=== PATIENT | male | born 1980 | race Caucasian/White ===

== ENCOUNTER 2022-02-11 10:19 | Outpatient (CLI) | payer BC, SELFPAY ==
[2022-02-11 19:41] LABS: Hematocrit 44.8 % (42.0-52.0); Hemoglobin 14.8 g/dL (14.0-18.0); Mean Corpuscular Hemoglobin 29.1 pg (26-34); Mean Corpuscular Volume 88.2 fl (80-100); Mean Platelet Volume 10.9 fl (7.4-10.4); Platelet Count Result 208 k/mm3 (150-375); Red Blood Count 5.08 M/mm3 (4.6-6.20); Red Cell Distribution Width 12.4 % (11.5-14.5); White Blood Count 5.2 K/mm3 (4.5-10.0)
[2022-02-11 19:47] LABS: Alanine Aminotransferase 33 U/L (6-50); Albumin Level 4.6 g/dL (3.5-5.1); Alkaline Phosphatase 52 U/L (38-126); Anion Gap 6 mmol/L (8-16); Aspartate Amino Transferase 33 U/L (17-59); Bilirubin,Total 0.5 mg/dL (0.2-1.3); Blood Urea Nitrogen 15 mg/dL (9-20); Calcium 9.1 mg/dL (8.4-10.2); Carbon Dioxide 30 mmol/L (22-30); Chloride 105 mmol/L (98-107); Cholesterol 221 mg/dL (0-200); Estimated Glomerular Filt Rate > 60; Glucose 95 mg/dL (65-110); HDL Direct 43 mg/dL; Potassium 4.5 mmol/L (3.4-5.0); Sodium 141 mmol/L (137-145); Triglycerides 123 mg/dL (<150)
[2022-02-11 20:01] LABS: LDL Cholesterol Direct 125 mg/dL
[2022-02-11 20:48] LABS: Folic Acid 14.6 ng/mL (2.76->20)
== END 2022-02-11 10:20 | disposition home or self-care (01) ==
LOC: ANHGOSHLAB 10:21
PROVIDERS: PCP Family Medicine; Visit Provider Family Medicine
DX: Z00.00 Encounter for general adult medical examination without abnormal findings (principal); E72.11 Homocystinuria; E72.12 Methylenetetrahydrofolate reductase deficiency; E78.2 Mixed hyperlipidemia
CPT/HCPCS: 36415; 80053; 80061; 82607; 82746; 85027

== ENCOUNTER 2023-10-25 14:30 | Outpatient (RCR) | payer SELFPAY ==
--- NOTE | 2023-08-26 14:27 | OTOPEVAL1 ---
Assessment and note entered by Hesham Reaves, AMRITR/Essie, CHT Evaluation Information Assessment Status Evaluation Diagnosis de Quervain's Subjective Information Patient reports his right wrist feels achy , pointing to the dorsum of the wrist in the center. No pain at rest, just when the wrist is stressed with particular activities. Also notes that his pain tends to be worse when his arm is fatigued. States he sees a chiropractor a few times a year and they were wondering if the wrist pain was coming from the elbow. Specifically he notes pain with shaking hands, when his hand is squeezed. Pain with spraying an aerosol can. Reports he notices symptoms when his muscles are already fatigued. He states he has experienced no acute trauma to the wrist, but notes he did fall onto the wrist a few years ago and wonders if this is residual effects from that. He has not had an x- ray or any imaging of the wrist/arm. He reports he can experience some tingling at nighttime, but unable to really pinpoint where. He states he will pay more attention to this and report back. Reported Pain Level Additional Pain Score Comments Patient reports pain comes and goes. It can get up to 6/10 at worst . Assessment OT Clinical Summary Patient referred to OT with dx of de Quervain's. Today we were unable to recreate his pain in the clinic. Negative Jonathon's and no pain with MMT to the wrist or thumb. The carpal bones have no laxity or pain with anterior-posterior sheer tests. TFCC tests were all negative. 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 Continued follow up indicated to assess the effectiveness of this intervention, to progression of his HEP, for use of modalities to treat pain, and manual therapy. Plan of Care Interventions Therapeutic Exercise,Manual Therapy,Paraffin OT Services Indicated Yes Treatment Frequency and 1x/week for 3 visits Duration These treatments will address the objective and functional deficits as defined above. The patient will be advanced safely and appropriately in order for the patient to progress towards his/her prior level of function. Additional exercises will be introduced and as well as a comprehensive home exercise program upon discharge, if needed, ?to ensure carryover of functional gains achieved in the clinic. This treatment plan has been reviewed and agreement upon by the patient.
--- NOTE | 2023-08-26 14:27 | OPREHPOC ---
Outpatient Therapy Plan of Care This is a Multidisciplinary Plan of Care that may contain components documented by all disciplines (PT, OT, and ST.) OT Problem 1 OT Problem #1 Knowledge Deficit OT Goal 1 Goal 1. Patient to be independent with instructed materials. Target Visit 3 OT Problem 2 OT Problem #2 Pain OT Goal 1 Goal 1. Patient to report no pain with ADLs or functional activities that require gripping, pinching, and lifting. Target Visit 3
--- NOTE | 2023-10-05 11:04 | PCOTNOTE ---
Touched base with patient on the phone since he has not scheduled a follow up appointment since his initial evaluation on 08/26/23. He reports his hand and wrist are improving, but he would like to not be discharged at this time. Informed him that he will need to make an appointment within 90 days of the initial eval or he will be discharged. He is going to continue his HEP for another month a reach out to either be discharged if going well or make an appointment.
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
== END 2023-11-24 23:59 | disposition home or self-care (01) ==
LOC: ANHGOSHOT 14:30
PROVIDERS: PCP Family Medicine; Visit Provider Family Medicine
DX: M65.4 Radial styloid tenosynovitis [de Quervain] (principal)
CPT/HCPCS: 97110; 97166; 97530